=== PATIENT | female | born 1995 | race Two or more races ===

== ENCOUNTER 2018-11-01 07:17 | Inpatient (IN) | payer OTHER ==
[~2018-11-01] VITALS: Ht 152.4 cm; Wt 83.5 kg
[2018-11-01] MEDS ORDERED: IRON18 MG PO (08:10)
[2018-11-01] MEDS ORDERED: OBSTETRIX EC C1 EACH PO (08:10)
== END 2018-11-04 10:43 | DRG 807 ==
LOC: LDR 07:17 → OB/GYN 07:17 → LDR 21:01 → OB/GYN 11-02 02:08
PROC: 4A1HXCZ Monitoring of Products of Conception, Cardiac Rate, External Approach (ICD-10-PCS; 2018-11-01)
PROC: 10E0XZZ Delivery of Products of Conception, External Approach (ICD-10-PCS; principal; 2018-11-02)
DX: O80 Encounter for full-term uncomplicated delivery (principal); Z37.0 Single live birth; Z3A.38 38 weeks gestation of pregnancy

== ENCOUNTER 2024-11-10 13:18 | Inpatient (IN) | payer OTHER ==
[~2024-11-10] VITALS: Ht 152.4 cm; Wt 92.1 kg
[2024-11-10] VITALS (9 sets, daily range): BP systolic 105–129; BP diastolic 60–79
[~2024-11-10 13:18] MED LIST: IRON18 MG PO; OBSTETRIX EC C1 EACH PO
[2024-11-10] MEDS ORDERED: RINGERS SOLUTION,LACTATED 1,000 ML IV SCH (13:45)
[2024-11-10] MEDS ORDERED: MORPHINE SULFATE 4 MG/ML CARTRIDGE IV ONE (14:00)
[2024-11-10] MEDS ORDERED: OXYTOCIN 500 ML IV SCH (14:00)
[2024-11-10 14:14] LABS: HEMATOCRIT 32.9 % (36.0-45.00); HEMOGLOBIN 10.7 g/dL (12.0-15.00); MEAN CELL VOLUME 81.1 fL (80.00-100.00); MEAN CORPUSCULAR HEMOGLOBIN 26.5 pg (27.00-32.0); MEAN CORPUSCULAR HGB CONC 32.6 g/dl (32.0-36.0); PLATELET COUNT 250 K/uL (150-450); RED BLOOD COUNT 4.06 M/uL (4.00-6.00); RED CELL DISTRIBUTION WIDTH 15.4 % (11.5-14.5)
[2024-11-10] MEDS ORDERED: ADULT LOW DOSE81 M1 PO (14:14)
[2024-11-10 14:15] LABS: URINE APPEARANCE Clear; URINE BILIRRUBIN Negative (NEGATIVE); URINE BLOOD Negative; URINE COLOR Yellow; URINE GLUCOSE Negative (NEGATIVE); URINE KETONE Trace (NEGATIVE); URINE LEUKOCYTE Negative; URINE NITRATE Negative; URINE PROTEIN Negative (NEGATIVE); URINE UROBILINOGEN 0.2 E.U./dl
[2024-11-10 14:19] LABS: URINE BACTERIA 1102.8 uL (0.0-1933); URINE EPITHELIAL CELLS 94.8 uL (0.0-38.8); URINE RBC 6.6 uL (0.0-20.8); URINE WBC 31.5 uL (0.0-23.2)
[2024-11-10 14:46] LABS: INR < 0.93; PARTIAL THROMBOPLASTIN TIME 25.4 SECONDS (22.0-34.0)
[2024-11-10 14:54] LABS: ALBUMIN 2.5 gm/dL (3.4-5.0); BILIRUBIN TOTAL 0.46 mg/dL (0.3-1.2); CREATININE SERUM 0.54 mg/dL (0.55-1.02); GFR 133.47; GLOBULINA 3.7 G/DL (2.4-3.5); POTASSIUM 3.9 mEq/L (3.5-5.1); TOTAL PROTEIN 6.2 gm/dL (6.4-8.2)
[2024-11-10] MEDS ORDERED: IBUprofen 400 MG TABLET PO PRN (21:00)
[2024-11-10] MEDS ORDERED: ERYTHROMYCIN BASE OPHT 1GM EACH TUBE OP ONE (21:45)
[2024-11-10] MEDS ORDERED: OXYTOCIN 1,000 ML IV SCH (23:45)
[2024-11-11 02:15] VITALS: BP 119/73
[2024-11-11 08:26] VITALS: BP 95/61
[2024-11-11] MEDS ORDERED: PNV,CALCIUM 72/IRON/FOLIC ACID 1 TAB TABLET PO SCH (09:00)
[2024-11-11 09:11] LABS: HEMATOCRIT 29.1 % (36.0-45.00); HEMOGLOBIN 9.7 g/dL (12.0-15.00); MEAN CORPUSCULAR HEMOGLOBIN 26.5 pg (27.00-32.0); MEAN CORPUSCULAR HGB CONC 33.2 g/dl (32.0-36.0); PLATELET COUNT 222 K/uL (150-450); RED BLOOD COUNT 3.64 M/uL (4.00-6.00); RED CELL DISTRIBUTION WIDTH 15.6 % (11.5-14.5)
[2024-11-11 15:49] VITALS: BP 103/68
[2024-11-12 01:00] VITALS: BP 100/69; BP 100/71
[2024-11-12 07:52] VITALS: BP 108/73
== END 2024-11-12 12:59 | disposition home or self-care (01) | DRG 807 ==
LOC: LDR 13:18 → OB/GYN 23:15
PROVIDERS: Obstetrics & Gynecology; ADMIT Obstetrics & Gynecology; ATTEND Obstetrics & Gynecology
PROC: 10E0XZZ Delivery of Products of Conception, External Approach (ICD-10-PCS; principal; 2024-11-10)
PROC: 0UQG7ZZ Repair Vagina, Via Natural or Artificial Opening (ICD-10-PCS; 2024-11-10)
PROC: 4A1HXCZ Monitoring of Products of Conception, Cardiac Rate, External Approach (ICD-10-PCS; 2024-11-10)
DX: O71.4 Obstetric high vaginal laceration alone (principal); Z37.0 Single live birth; Z3A.37 37 weeks gestation of pregnancy; Z20.822 Contact with and (suspected) exposure to COVID-19